=== PATIENT | female | born 1970 | race Caucasian/White ===

== ENCOUNTER 2016-03-10 20:47 | Emergency (ER) | payer BC ==
[2016-03-10] MEDS ORDERED: DICYCLOMINE 20MG/2ML VIAL IM ONE (22:40)
[2016-03-10] MEDS ORDERED: LIDOCAINE 2% VISC 15 ML UDC ONE (23:21)
[2016-03-10] MEDS ORDERED: ALU/MAG/SIM 30 ML UDC ONE (23:21)
== END 2016-03-10 23:52 | disposition home or self-care (01) ==
LOC: ER 20:47
DX: R10.13 Epigastric pain (principal)
CPT/HCPCS: 36415; 76705; 80053; 81003; 83690; 84703; 85025; 96372

== ENCOUNTER 2016-04-09 08:52 | Emergency (ER) | payer BC, OTHER ==
[2016-04-09] MEDS ORDERED: ONDANSETRON ODT 4 MG TAB ONE (11:02)
== END 2016-04-09 11:32 | disposition home or self-care (01) ==
LOC: ER 08:52
DX: S09.90XA Unspecified injury of head, initial encounter (principal); S00.93XA Contusion of unspecified part of head, initial encounter; S00.83XA Contusion of other part of head, initial encounter; S16.1XXA Strain of muscle, fascia and tendon at neck level, initial encounter; W22.8XXA Striking against or struck by other objects, initial encounter; Y93.89 Activity, other specified; Y92.69 Other specified industrial and construction area as the place of occurrence of the external cause
CPT/HCPCS: 70450; 70486; 72125